=== PATIENT | male | born 1985 | race Caucasian/White ===

== ENCOUNTER 2025-03-07 15:58 | Emergency (ER) | payer OTHER ==
[~2025-03-07] VITALS: Ht 167.6 cm; Wt 72.7 kg
[2025-03-07 16:01] VITALS: TEMP 97.9
[2025-03-07 17:06] LABS: PLATELET COUNT (AUTO) 240 K/uL (150-450); RED BLOOD CELL COUNT(AUTO) 5.22 MIL/uL (4.50-5.90); RED CELL DISTRIBUTION WIDTH 13.6 % (11.5-14.5); WHITE BLOOD COUNT (AUTO) 10.2 K/uL (4.5-11.0)
[2025-03-07 17:15] LABS: CALCIUM, TOTAL 8.6 mg/dL (8.8-10.5); CREATININE 0.91 mg/dL (0.60-1.30); GLOMERULAR FILTR. RATE CALC > 60 mL/min (>60); GLUCOSE,RANDOM 97 mg/dL (70-110); SODIUM SERUM 139 mmol/L (136-145); UREA NITROGEN, BLOOD 18 mg/dL (7-18)
[2025-03-07 18:49] VITALS: BP 136/87; PULSE 80; RESP 16; O2SAT 100
[2025-03-07] MEDS: IBUPROFEN 600 MG TABLET PO ONE (19:30)
[2025-03-07] MEDS: ACETAMINOPHEN 500 MG TABLET PO ONE (19:30)
== END 2025-03-07 20:03 ==
LOC: EMS 15:58
DX: S02.2XXA Fracture of nasal bones, initial encounter for closed fracture (principal); S00.03XA Contusion of scalp, initial encounter; S20.211A Contusion of right front wall of thorax, initial encounter; Z65.3 Problems related to other legal circumstances; Y08.89XA Assault by other specified means, initial encounter; Y93.89 Activity, other specified; Y92.89 Other specified places as the place of occurrence of the external cause; Y99.8 Other external cause status
CPT/HCPCS: 70450; 99284; 71045; 80048; 85025; 36415; 70486; 71250; 72125; 72192; 74150; G0480